=== PATIENT | female | born 1990 | race Caucasian/White ===

== ENCOUNTER 2018-08-31 12:00 | Emergency (ER) | payer BC, MEDICAID ==
[2018-08-31 14:29] VITALS: BP 111/76
[2018-08-31 15:00] LABS: Influenza A Molecular NEGATIVE (Negative); Influenza B Molecular NEGATIVE (Negative)
--- NOTE | 2018-08-31 15:02 | UC ---
FLU HPI - HPI Summary HPI Summary: woke up this morning with body ahces and chills, no fever, is worried she has the flu - History of Current Complaint Chief Complaint: UCGeneralIllness Stated Complaint: ACHY,CHILLS Time Seen by Provider: 08/31/18 14:53 Hx Obtained From: Patient Hx Last Menstrual Period: 03/04/14 ?: No Onset/Duration: Sudden Onset, Lasting Hours Severity Currently: Moderate Severity Initially: Moderate Pain Intensity: 5 Associated Signs & Symptoms: Positive: Myalgia - Allergy/Home Medications Allergies/Adverse Reactions: Allergies Allergy/AdvReac Type Severity Reaction Status Date / Time azithromycin Allergy GI Upset Verified 08/31/18 14:29 Home Medications: Home Medications Multivitamin [Multivitamins] 1 cap PO 08/31/18 [History] PMH/Surg Hx/FS Hx/Imm Hx Previously Healthy: Yes - Surgical History Surgical History: Yes Surgery Procedure, Year, and Place: - Family History Known Family History: Negative: Cardiac Disease - Social History Alcohol Use: None Substance Use Type: None Smoking Status (MU): Never Smoked Tobacco Review of Systems All Other Systems Reviewed And Are Negative: Yes Constitutional: Positive: Chills, Fatigue Skin: Positive: Negative Eyes: Positive: Negative ENT: Positive: Negative Respiratory: Positive: Negative Cardiovascular: Positive: Negative Gastrointestinal: Positive: Negative Genitourinary: Positive: Negative Motor: Positive: Negative Neurovascular: Positive: Negative Musculoskeletal: Positive: Negative, Myalgia Neurological: Positive: Headache Psychological: Positive: Negative Is Patient Immunocompromised?: No Physical Exam Triage Information Reviewed: Yes Appearance: Well-Nourished, Ill-Appearing, Pain Distress Vital Signs: Initial Vital Signs Temp 98.5 F 08/31/18 14:25 Pulse 112 08/31/18 14:25 Resp 18 08/31/18 14:25 BP 111/76 08/31/18 14:25 Pulse Ox 100 08/31/18 14:25 Vital Signs Reviewed: Yes Eye Exam: Normal ENT Exam: Normal ENT: Positive: Pharynx normal, TMs normal Dental Exam: Normal Neck exam: Normal Neck: Positive: Supple, Nontender, No Lymphadenopathy Respiratory Exam: Normal Respiratory: Positive: Chest non-tender, Lungs clear, Normal breath sounds Cardiovascular Exam: Normal Cardiovascular: Positive: RRR, No Murmur, Pulses Normal Abdominal Exam: Normal Bowel Sounds: Positive: Present Musculoskeletal Exam: Normal Neurological Exam: Normal Psychological Exam: Normal Skin Exam: Normal Flu Course/Dx - Course Course Of Treatment: hx obtained, exam performed, meds reviewed, rapid flu was negavtive. - Differential Dx/Diagnosis Differential Diagnosis/HQI/PQRI: Influenza, Other Provider Diagnosis: Chills (without fever), Myalgia Discharge - Sign-Out/Discharge Documenting (check all that apply): Patient Departure All imaging exams completed and their final reports reviewed: No Studies - Discharge Plan Condition: Stable Disposition: HOME Patient Education Materials: Musculoskeletal Pain (ED) Referrals: Denver Eric MD [Primary Care Provider] - Additional Instructions: 1. your flu test was neagtive 2. Go home, get plenty of rest, increase fluid intake and ibuprofen 400 -600 mg every 4-6 hours. - Billing Disposition and Condition Condition: STABLE Disposition: Home - Attestation Statements Provider Attestation: I was available for consult. This patient was seen by the OSEAS. The patient was not presented to , seen by or examined by vt -Teddy Willoughby MD
== END 2018-08-31 15:12 | disposition home or self-care (01) ==
LOC: UCCORT 12:00
DX: M79.10 Myalgia, unspecified site (principal); R68.83 Chills (without fever); Z88.1 Allergy status to other antibiotic agents
CPT/HCPCS: 99211; G0463